=== PATIENT | female | born 1935 | race Caucasian/White ===

== ENCOUNTER 2019-10-26 10:40 | Inpatient (IN) | payer MEDICARE, OTHER ==
[~2019-10-26] VITALS: Ht 152.4 cm; Wt 69.6 kg
[~2019-10-26 10:40] MED LIST: ASPI-605 PO; DULO20CA PO; FURO-152 PO; GLIM1TAB18 PO; METF-440 PO; METO-357 PO; PRAV40TA3 PO; SPIR25TA6 PO; VALS320T2 PO
[2019-10-26 11:33] LABS: BASOPHILS # (AUTO) 0.1 K/uL (0.0-8.0); BASOPHILS % (AUTO) 0.9 % (0.0-2.0); EOSINOPHILS # (AUTO) 0.1 K/uL (0.0-0.7); EOSINOPHILS % (AUTO) 1.6 % (0.0-7.0); HEMATOCRIT 35.8 % (31.2-41.9); HEMOGLOBIN 11.9 g/dL (10.9-14.3); LYMPHOCYTES # (AUTO) 1.2 K/uL (20.0-40.0); LYMPHOCYTES % (AUTO) 17.7 % (20.5-51.5); MEAN CORPUSCULAR HEMOGLOBIN 27.7 uug (24.7-32.8); MEAN CORPUSCULAR HGB CONC 33 g/dL (32.3-35.6); MEAN CORPUSCULAR VOLUME 83.3 fL (75.5-95.3); MONOCYTES # (AUTO) 0.3 K/uL (2.0-10.0); MONOCYTES % (AUTO) 4.8 % (0.0-11.0); NEUTROPHILS # (AUTO) 5.2 K/uL (1.8-8.9); PLATELET COUNT (AUTO) 159 K/uL (179-408)
[2019-10-26 11:40] LABS: CARBON DIOXIDE 24 mmol/L (21-32); CHLORIDE 102 mmol/L (98-107); CREATININE 2.2 mg/dL (0.6-1.3); POTASSIUM 5.1 mmol/L (3.5-5.1); UREA NITROGEN, BLOOD 65 mg/dL (7-18)
[2019-10-26 11:42] LABS: GLUCOSE 46 mg/dL (74-106)
[2019-10-26 11:46] LABS: ALANINE AMINOTRANSFERASE 14 U/L (14-59); ALKALINE PHOSPHATASE 52 U/L (50-136); ASPARTATE AMINOTRANSFERASE 20 U/L (15-37); BILIRUBIN,DIRECT 0.1 mg/dL (0.0-0.2); BILIRUBIN,TOTAL 0.5 mg/dL (0.2-1.0); TOTAL PROTEIN, SERUM 7.6 g/dL (6.4-8.2)
[2019-10-26 12:40] LABS: *BILIRUBIN,URIN NEGATIVE (NEGATIVE); *BLOOD, URINE NEGATIVE (NEGATIVE); *CLARITY,URINE CLEAR (CLEAR); *COLOR,URINE YELLOW (YELLOW); *KETONES,URINE NEGATIVE (NEGATIVE); *UROBILINOGEN,URINE 0.2 E.U./dl (NORMAL); LEUKOCYTE ESTERASE ,URINE NEGATIVE (NEGATIVE); NITRITE, URINE NEGATIVE (NEGATIVE); UGLUCOSE NEGATIVE (NEGATIVE)
[2019-10-26] MEDS ORDERED: ONDANSETRON 4 MG/2 ML VIAL ONE (12:43)
[2019-10-26] MEDS ORDERED: ONDANSETRON 4 MG/2 ML VIAL IV ONE (12:45)
[2019-10-26] MEDS ORDERED: calcium PO (13:44)
[2019-10-26] MEDS ORDERED: GLIP10TA11 PO (13:44)
[2019-10-26] MEDS ORDERED: IRBE300T19 PO (13:44)
[2019-10-26] MEDS ORDERED: NAPR-1009 PO (13:44)
[2019-10-26] MEDS ORDERED: METF-494 PO (13:44)
[2019-10-26] MEDS ORDERED: LEVO88TA5 PO (13:44)
[2019-10-26] MEDS ORDERED: METF-440 PO (13:44)
[2019-10-26] MEDS ORDERED: DICL100G16 TP (15:37)
[2019-10-26] MEDS ORDERED: CARV3.12 PO (15:37)
[2019-10-26] MEDS ORDERED: NITR0.4T48 SL (15:37)
[2019-10-26] MEDS ORDERED: OLOP2.5D OP (15:37)
[2019-10-26 15:47] VITALS: BP 143/56
[2019-10-26] MEDS: BLOOD SUGAR DIAGNOSTIC 1 EACH STRIP VI SCH ×2 (16:20→20:00)
[2019-10-26] MEDS ORDERED: IV D5 1/2 NS 1000 ML 1,000 ML IV PRN (16:38)
[2019-10-26] MEDS ORDERED: HYDROCODONE/APAP 5-325MG TABLET PO PRN (16:45)
[2019-10-26] MEDS ORDERED: MAGNESIUM HYDROXIDE 30 ML LIQUID UDC PO PRN (16:45)
[2019-10-26] MEDS ORDERED: ZOLPIDEM 5 MG TABLET PO PRN (16:45)
[2019-10-26] MEDS ORDERED: Z GUARD REMEDY PASTE 57 GM TUBE TOP PRN (16:45)
[2019-10-26] MEDS ORDERED: ACETAMINOPHEN 325 MG TABLET PO PRN (16:45)
[2019-10-26] MEDS ORDERED: NITROGLYCERIN 0.4 MG/TAB BOTTLE SL SCH (16:45)
[2019-10-26] MEDS ORDERED: ONDANSETRON 4 MG/2 ML VIAL IV PRN (16:45)
[2019-10-26] MEDS ORDERED: NAPROXEN 500 MG TABLET PO PRN (16:45)
[2019-10-26] MEDS ORDERED: NITROGLYCERIN 0.4 MG/TAB BOTTLE SL PRN (17:15)
[2019-10-26] MEDS ORDERED: OLOPATADINE 0.1% OPHT DROP 5 ML BOTTLE EACHEYE PRN (17:15)
[2019-10-26 20:00] VITALS: BP 113/34
[2019-10-26] MEDS ORDERED: CARVEDILOL 3.125 MG TABLET PO SCH (21:00)
[2019-10-27] VITALS: BP 116/47
[2019-10-27] MEDS: BLOOD SUGAR DIAGNOSTIC 1 EACH STRIP VI SCH ×6 (00:08→20:00)
[2019-10-27 04:09] VITALS: BP 145/55
[2019-10-27 04:10] VITALS: BP 146/84
[2019-10-27] MEDS: LEVOTHYROXINE SODIUM 88 MCG TABLET PO SCH (05:42)
[2019-10-27 06:18] LABS: BASOPHILS % (AUTO) 0.8 % (0.0-2.0); EOSINOPHILS # (AUTO) 0.3 K/uL (0.0-0.7); EOSINOPHILS % (AUTO) 6.5 % (0.0-7.0); HEMATOCRIT 33.3 % (31.2-41.9); HEMOGLOBIN 10.8 g/dL (10.9-14.3); LYMPHOCYTES # (AUTO) 1.4 K/uL (20.0-40.0); LYMPHOCYTES % (AUTO) 33.1 % (20.5-51.5); MEAN CORPUSCULAR HEMOGLOBIN 27.1 uug (24.7-32.8); MEAN CORPUSCULAR HGB CONC 32 g/dL (32.3-35.6); MEAN CORPUSCULAR VOLUME 83.9 fL (75.5-95.3); MONOCYTES # (AUTO) 0.5 K/uL (2.0-10.0); NEUTROPHILS % (AUTO) 48.6 % (38.5-71.5); PLATELET COUNT (AUTO) 140 K/uL (179-408); RED BLOOD CELL COUNT(AUTO) 3.97 MIL/uL (3.63-4.92); WHITE BLOOD COUNT (AUTO) 4.2 K/uL (3.8-11.8)
[2019-10-27 06:44] LABS: THYROID STIMULATING HORMONE 13.543 mIU/mL (0.358-3.740)
[2019-10-27 06:46] LABS: CARBON DIOXIDE 28 mmol/L (21-32); CHLORIDE 104 mmol/L (98-107); CREATININE 1.6 mg/dL (0.6-1.3); GLUCOSE 193 mg/dL (74-106); MAGNESIUM 1.9 mg/dL (1.8-2.4); PHOSPHOROUS 3.5 mg/dL (2.5-4.9); POTASSIUM 4.6 mmol/L (3.5-5.1); UREA NITROGEN, BLOOD 51 mg/dL (7-18)
[2019-10-27 07:26] LABS: CHOLESTEROL 133 mg/dL (<200); TRIGLYCERIDES 122 MG/DL (30-150)
[2019-10-27 07:27] LABS: HDL CHOLESTEROL 43 mg/dL (40-60)
[2019-10-27] MEDS: ASPIRIN EC 81 MG TABLET.DR PO SCH (08:59)
[2019-10-27] MEDS: CARVEDILOL 3.125 MG TABLET PO SCH ×2 (09:00→16:58)
[2019-10-27] MEDS ORDERED: FUROSEMIDE 20 MG TABLET PO SCH (09:00)
[2019-10-27] MEDS ORDERED: DULOXETINE 20 MG CAPSULE.DR PO SCH (09:00)
[2019-10-27] MEDS ORDERED: CALCIUM PO SCH (09:00)
[2019-10-27] MEDS ORDERED: METOPROLOL SUCCINATE XL 50 MG TAB.SR.24H PO SCH (09:00)
[2019-10-27] MEDS ORDERED: SPIRONOLACTONE 25 MG TABLET PO SCH (09:00)
[2019-10-27] MEDS ORDERED: VALSARTAN 160 MG TABLET PO SCH (09:00)
[2019-10-27] MEDS ORDERED: IV D5 1/2 NS 1000 ML 1,000 ML IV PRN (09:22)
[2019-10-27 11:00] VITALS: BP 127/46
[2019-10-27 15:18] VITALS: BP 107/49
[2019-10-27 20:00] VITALS: BP 97/32
[2019-10-27] MEDS ORDERED: ATORVASTATIN 10 MG TABLET PO SCH (21:00)
[2019-10-28] MEDS: BLOOD SUGAR DIAGNOSTIC 1 EACH STRIP VI SCH ×4 (04:54→11:37)
[2019-10-28] MEDS: LEVOTHYROXINE SODIUM 88 MCG TABLET PO SCH (04:54)
[2019-10-28 07:42] LABS: EOSINOPHILS # (AUTO) 0.3 K/uL (0.0-0.7); EOSINOPHILS % (AUTO) 7.2 % (0.0-7.0); HEMATOCRIT 35.8 % (31.2-41.9); HEMOGLOBIN 11.7 g/dL (10.9-14.3); LYMPHOCYTES # (AUTO) 1.3 K/uL (20.0-40.0); LYMPHOCYTES % (AUTO) 26.3 % (20.5-51.5); MEAN CORPUSCULAR HEMOGLOBIN 27.4 uug (24.7-32.8); MEAN CORPUSCULAR HGB CONC 33 g/dL (32.3-35.6); MONOCYTES # (AUTO) 0.5 K/uL (2.0-10.0); MONOCYTES % (AUTO) 10.8 % (0.0-11.0); NEUTROPHILS # (AUTO) 2.6 K/uL (1.8-8.9); NEUTROPHILS % (AUTO) 54.7 % (38.5-71.5); PLATELET COUNT (AUTO) 141 K/uL (179-408); RED BLOOD CELL COUNT(AUTO) 4.26 MIL/uL (3.63-4.92); WHITE BLOOD COUNT (AUTO) 4.8 K/uL (3.8-11.8)
[2019-10-28 07:54] LABS: CREATININE 1.2 mg/dL (0.6-1.3); MAGNESIUM 1.6 mg/dL (1.8-2.4); PHOSPHOROUS 2.9 mg/dL (2.5-4.9); POTASSIUM 4.4 mmol/L (3.5-5.1)
[2019-10-28] MEDS: ASPIRIN EC 81 MG TABLET.DR PO SCH (08:45)
[2019-10-28] MEDS: CARVEDILOL 3.125 MG TABLET PO SCH (08:46)
[2019-10-28] MEDS ORDERED: Medication Not On Formulary EA (Valsartan (Diovan) 320 MG) PO SCH (09:00)
[2019-10-28] MEDS ORDERED: VALSARTAN 160 MG TABLET PO SCH (09:00)
[2019-10-28 11:30] VITALS: BP 137/34
[2019-10-28] MEDS: MAGNESIUM SULFATE/D5W 100 ML IV SCH ×2 (11:31→12:57)
== END 2019-10-28 13:28 | disposition home or self-care (01) | DRG 637 ==
LOC: ER 10:40 → TELE3 14:33 → MEDSURG3 10-27 11:15
PROVIDERS: ADMIT Student in an Organized Health Care Education/Training Program; ATTEND Student in an Organized Health Care Education/Training Program
DX: E11.649 Type 2 diabetes mellitus with hypoglycemia without coma (principal); G93.41 Metabolic encephalopathy; E86.0 Dehydration; T38.3X5A Adverse effect of insulin and oral hypoglycemic [antidiabetic] drugs, initial encounter; Z79.84 Long term (current) use of oral hypoglycemic drugs; Y92.019 Unspecified place in single-family (private) house as the place of occurrence of the external cause; D69.6 Thrombocytopenia, unspecified; N17.0 Acute kidney failure with tubular necrosis; M11.20 Other chondrocalcinosis, unspecified site; E78.5 Hyperlipidemia, unspecified; Z86.73 Personal history of transient ischemic attack (TIA), and cerebral infarction without residual deficits; Z79.899 Other long term (current) drug therapy; Z79.890 Hormone replacement therapy; I70.0 Atherosclerosis of aorta; I67.2 Cerebral atherosclerosis; E78.00 Pure hypercholesterolemia, unspecified
CPT/HCPCS: 36415; 70030-TC; 70450; 71045; 83735; 84100; 84443; 85025; 85730; 93005; A4663; G0378; J2405; J3475; J3490

== ENCOUNTER 2021-08-10 17:21 | Emergency (ER) | payer MEDICARE, OTHER ==
[~2021-08-10] VITALS: Ht 152.4 cm; Wt 68.0 kg
[~2021-08-10 17:21] MED LIST changes: +CARV3.12 PO; +DICL100G16 TP; -GLIM1TAB18 PO; +IRBE300T19 PO; +LEVO88TA5 PO; -METF-440 PO; +NAPR-1009 PO; +NITR0.4T48 SL; +OLOP2.5D12 OP; +calcium PO
--- NOTE | 2021-08-10 17:30 | NUR ---
Pt was triaged and placed back in ER waiting room as there are no ER beds available at this time. Family is with pt.
--- NOTE | 2021-08-10 18:45 | NUR ---
Per ER admitting the patient left with a family member.
== END 2021-08-10 18:47 | disposition left against medical advice (07) ==
LOC: ER 17:25
DX: Z53.21 Procedure and treatment not carried out due to patient leaving prior to being seen by health care provider (principal)

== ENCOUNTER 2022-03-01 19:03 | Emergency (ER) | payer MEDICARE, OTHER ==
[~2022-03-01] VITALS: Ht 162.6 cm; Wt 72.6 kg
--- NOTE | 2022-03-01 19:12 | NUR ---
PATIENT WAS TRIAGED IN THE WAITING ROOM DUE TO NO BEDS AVAILABLE IN THE ER.
--- NOTE | 2022-03-01 21:15 | NUR ---
Patient discharged to home in stable condition. Written and verbal after care instructions given. Patient verbalizes understanding of instructions. Stressed follow up or return to ER for worsening s/s. pt ambulated with steady gait with cane. no chest pain, no SOB. AOx4
[2022-03-01 21:17] VITALS: BP 112/60
== END 2022-03-01 21:18 | disposition home or self-care (01) ==
LOC: ER 19:20
DX: U07.1 COVID-19 (principal); E11.9 Type 2 diabetes mellitus without complications; E78.00 Pure hypercholesterolemia, unspecified; M10.9 Gout, unspecified; Z79.899 Other long term (current) drug therapy
CPT/HCPCS: A4663

== ENCOUNTER 2023-01-19 13:57 | Emergency (ER) | payer MEDICARE, OTHER ==
[~2023-01-19] VITALS: Ht 165.1 cm; Wt 72.6 kg
--- NOTE | 2023-01-19 14:28 | NUR ---
[email or web address],medical screening exam in progress
[2023-01-19] MEDS ORDERED: ACETAMINOPHEN ES 500 MG TABLET ONE (14:39)
[2023-01-19] MEDS ORDERED: ACETAMINOPHEN ES 500 MG TABLET PO ONE (14:45)
--- NOTE | 2023-01-19 15:36 | NUR ---
Patient discharged to home by Dr Fischer in stable condition with slow steady gait. Written and verbal after care instructions given to patient's son. Patient's son verbalized understanding and compliance of instructions. Stressed follow up with primary doctor and minute clerk or return to ER for worsening s/s.
== END 2023-01-19 15:39 | disposition home or self-care (01) ==
LOC: ER 13:59
DX: I10 Essential (primary) hypertension (principal); T46.1X5A Adverse effect of calcium-channel blockers, initial encounter; E11.9 Type 2 diabetes mellitus without complications; E78.5 Hyperlipidemia, unspecified; Z79.899 Other long term (current) drug therapy; Z79.82 Long term (current) use of aspirin; Y92.89 Other specified places as the place of occurrence of the external cause
CPT/HCPCS: 93005; A4663; A9150

== ENCOUNTER 2025-02-15 11:30 | Inpatient (IN) | payer MEDICARE, OTHER ==
[~2025-02-15] VITALS: Ht 190.5 cm; Wt 62.6 kg
[~2025-02-15 11:30] MED LIST changes: +ONDA4TAB11 PO
[2025-02-15 13:00] VITALS: BP 152/65; TEMP 98.2
[2025-02-15 13:13] VITALS: BP 152/65; TEMP 98.2
[2025-02-15 15:22] VITALS: BP 113/38; TEMP 98.6; O2SAT 98
[2025-02-15] MEDS ORDERED: ACET325T53 PO (16:51)
[2025-02-15] MEDS ORDERED: APIX5TAB PO (17:40)
[2025-02-15] MEDS ORDERED: ATOR40TA PO (17:43)
[2025-02-15] MEDS ORDERED: HYDR-894 PO (17:44)
[2025-02-15] MEDS ORDERED: IPRA0.2S48 NEB (17:45)
[2025-02-15] MEDS ORDERED: LOSA25TA27 PO (17:46)
[2025-02-15] MEDS ORDERED: LEVO125T8 PO (17:46)
[2025-02-15] MEDS ORDERED: MAGN400O6 PO (17:47)
[2025-02-15] MEDS ORDERED: METO25TA6 PO (17:48)
[2025-02-15] MEDS ORDERED: NITR1OIN2 TP (17:52)
[2025-02-15] MEDS ORDERED: PANT40TA49 PO (17:53)
[2025-02-15] MEDS ORDERED: TICA90TA PO (17:53)
[2025-02-15] MEDS ORDERED: ALLO100T PO (17:54)
[2025-02-15] MEDS ORDERED: DIME118C3 TP (17:54)
[2025-02-15] MEDS ORDERED: ALEN70TA80 PO (17:54)
[2025-02-15] MEDS ORDERED: INSU100V28 SQ (17:56)
[2025-02-15] MEDS ORDERED: ZINC113P3 TP (17:57)
[2025-02-15] MEDS ORDERED: BISACODYL 5 MG TABLET.DR PO PRN (18:30)
[2025-02-15] MEDS: BISACODYL 5 MG TABLET.DR PO PRN (18:57)
[2025-02-15] MEDS ORDERED: diphenhydrAMINE 25 MG CAP PO PRN (20:00)
[2025-02-15 20:07] VITALS: BP 161/42; TEMP 98.4; O2SAT 99
[2025-02-15] MEDS ORDERED: MAGNESIUM HYDROXIDE 30 ML LIQUID UDC PO PRN (21:45)
[2025-02-15] MEDS ORDERED: ACETAMINOPHEN 325 MG TABLET-SA PATIENTS-PAIN ONLY PO PRN (21:45)
[2025-02-16 00:08] LABS: *BILIRUBIN,URIN NEGATIVE (NEGATIVE); *BLOOD, URINE 3+ (NEGATIVE); *CLARITY,URINE SLIGHTLY CLOUDY (CLEAR); *COLOR,URINE YELLOW (YELLOW); *KETONES,URINE NEGATIVE (NEGATIVE); *PROTEIN,URINE 2+ (NEGATIVE); LEUKOCYTE ESTERASE ,URINE NEGATIVE (NEGATIVE); NITRITE, URINE NEGATIVE (NEGATIVE); PH,URINE 7.5 (5.0-8.0); UGLUCOSE NEGATIVE (NEGATIVE)
[2025-02-16 00:15] LABS: BACTERIA,URINE FEW /HPF (NONE SEEN); RBC,URINE 80-100 /HPF (0-3); SQUAMOUS EPITHELIAL CELL,UR FEW /HPF (NONE SEEN); WBC,URINE 0-3 /HPF (0-3)
[2025-02-16] MEDS: LEVOTHYROXINE SODIUM 125 MCG TABLET PO SCH (06:25)
[2025-02-16] MEDS: PANTOPRAZOLE SODIUM 40 MG TABLET.DR PO SCH (06:26)
[2025-02-16 06:30] VITALS: BP 137/37; TEMP 98.2; O2SAT 96
[2025-02-16 06:51] LABS: BASOPHILS # (AUTO) 0.1 K/UL (0.0-0.2); BASOPHILS % (AUTO) 1.1 % (0.0-2.0); EOSINOPHILS # (AUTO) 0.2 K/uL (0.0-0.7); EOSINOPHILS % (AUTO) 2.9 % (0.0-7.0); HEMATOCRIT 37.1 % (31.2-41.9); HEMOGLOBIN 11.9 g/dL (10.9-14.3); LYMPHOCYTES # (AUTO) 0.5 K/uL (0.8-4.8); LYMPHOCYTES % (AUTO) 8.1 % (20.5-51.5); MEAN CORPUSCULAR HEMOGLOBIN 24.4 uug (24.7-32.8); MEAN CORPUSCULAR HGB CONC 32 g/dL (32.3-35.6); MEAN CORPUSCULAR VOLUME 76.3 fL (75.5-95.3); MONOCYTES # (AUTO) 0.8 K/uL (0.1-1.30); MONOCYTES % (AUTO) 13.1 % (0.0-11.0); NEUTROPHILS # (AUTO) 4.8 K/uL (1.8-8.9); NEUTROPHILS % (AUTO) 74.8 % (38.5-71.5); PLATELET COUNT (AUTO) 201 K/uL (179-408); RED BLOOD CELL COUNT(AUTO) 4.86 MIL/uL (3.63-4.92); RED CELL DISTRIBUTION WIDTH 24.4 % (12.3-17.7); WHITE BLOOD COUNT (AUTO) 6.4 K/uL (3.8-11.8)
[2025-02-16 07:01] LABS: DIFFERENTIAL COMMENT 1
[2025-02-16 07:03] LABS: CALCIUM 9.6 mg/dL (8.5-10.1); CARBON DIOXIDE 29 mmol/L (21-32); CHLORIDE 102 mmol/L (98-107); CREATININE 1.3 mg/dL (0.6-1.3); GLUCOSE 190 mg/dL (74-106); MAGNESIUM 2.2 mg/dL (1.8-2.4); SODIUM SERUM 141 mmol/L (136-145); UREA NITROGEN, BLOOD 33 mg/dL (7-18)
[2025-02-16 08:00] VITALS: BP 156/50; TEMP 98.7; O2SAT 96
[2025-02-16] MEDS ORDERED: DEXTROSE 50% 50 ML DISP.SYRIN IV PRN (08:45)
[2025-02-16] MEDS ORDERED: FUROSEMIDE 20 MG TABLET PO SCH (09:00)
[2025-02-16] MEDS ORDERED: APIXABAN 5 MG TABLET PO SCH (09:00)
[2025-02-16] MEDS: METOPROLOL TARTRATE 25 MG TABLET PO SCH (09:00)
[2025-02-16] MEDS ORDERED: hydrALAZINE HCL 25 MG TABLET PO SCH (09:00)
[2025-02-16] MEDS ORDERED: METOPROLOL TARTRATE 25 MG TABLET PO SCH (09:00)
[2025-02-16] MEDS: ASPIRIN EC 81 MG TABLET.DR PO SCH (09:58)
[2025-02-16] MEDS: hydrALAZINE HCL 25 MG TABLET PO ONE (09:58)
[2025-02-16] MEDS: TICAGRELOR 90 MG TABLET PO SCH (09:59)
[2025-02-16] MEDS: ALLOPURINOL 100 MG TABLET PO SCH (09:59)
[2025-02-16] MEDS: FUROSEMIDE 20 MG TABLET PO SCH (10:51)
[2025-02-16] MEDS: APIXABAN 5 MG TABLET PO SCH (11:04)
[2025-02-16] MEDS: BLOOD SUGAR DIAGNOSTIC 1 EACH STRIP VI SCH (11:30)
[2025-02-16] MEDS: GLUCERNA SHAKE 237 ML CAN PO SCH (12:00)
[2025-02-16] MEDS: INSULIN REGULAR, HUMAN 1000 UNIT/10 ML VIAL SQ PRN (12:08)
[2025-02-16] MEDS: hydrALAZINE HCL 25 MG TABLET PO SCH (14:04)
[2025-02-16 15:09] VITALS: BP 142/34; TEMP 98.2; O2SAT 100
[2025-02-16] MEDS ORDERED: LOSARTAN POTASSIUM 25 MG TABLET PO SCH (21:00)
[2025-02-16] MEDS: LOSARTAN POTASSIUM 25 MG TABLET PO SCH (21:25)
[2025-02-16] MEDS: ATORVASTATIN 40 MG TABLET PO SCH (21:27)
[2025-02-16 22:45] VITALS: BP 134/38; TEMP 98.4; O2SAT 95
[2025-02-17 06:57] VITALS: BP 131/36; TEMP 98.4; O2SAT 96
[2025-02-17 08:00] VITALS: BP 120/49; TEMP 97.8; O2SAT 100
[2025-02-17] MEDS: TRAMADOL HCL 50 MG TABLET PO PRN (10:47)
[2025-02-17] MEDS: ACETAMINOPHEN 325 MG TABLET PO PRN (12:04)
[2025-02-17 16:02] VITALS: BP 112/61; TEMP 98.2; O2SAT 97
[2025-02-17] MEDS ORDERED: BISACODYL 10 MG SUPP.RECT RC PRN (20:00)
[2025-02-17 20:26] VITALS: BP 123/41; TEMP 98.3; O2SAT 19
[2025-02-18 07:00] VITALS: BP 137/36; TEMP 97.8; O2SAT 95
[2025-02-18 08:27] VITALS: BP 128/37; TEMP 98.1; O2SAT 96
[2025-02-18] MEDS: predniSONE 20 MG TABLET PO SCH (09:03)
[2025-02-18 16:09] VITALS: BP 128/37; TEMP 97.7; O2SAT 97
[2025-02-18 21:29] VITALS: BP 124/39; TEMP 98.1; O2SAT 94
[2025-02-19 06:54] VITALS: BP 152/42; TEMP 97.7; O2SAT 97
[2025-02-19 07:39] VITALS: BP 139/48; TEMP 97.6; O2SAT 100
[2025-02-19] MEDS: predniSONE 20 MG TABLET PO SCH (09:20)
[2025-02-19 16:00] VITALS: BP 132/50; TEMP 97.6; O2SAT 98
[2025-02-19 19:52] VITALS: BP 133/62; TEMP 97.9; O2SAT 95
[2025-02-19 21:05] VITALS: BP 120/43
[2025-02-19] MEDS: INSULIN GLARGINE,HUM 300 UNITS/3 ML CARTRIDGE SQ SCH (21:21)
[2025-02-20 06:42] VITALS: BP 140/61; TEMP 97.4; O2SAT 97
[2025-02-20 08:10] VITALS: BP 125/45; TEMP 97.6; O2SAT 99
[2025-02-20 16:47] VITALS: BP 114/93; TEMP 97.7; O2SAT 97
[2025-02-20] MEDS: INSULIN REGULAR, HUMAN 1000 UNIT/10 ML VIAL SQ ONE (18:30)
[2025-02-20 20:16] VITALS: BP 118/40; TEMP 97.8; O2SAT 96
[2025-02-21] MEDS: ALENDRONATE SODIUM 70 MG TABLET PO SCH (06:50)
[2025-02-21 06:51] VITALS: BP 170/53; TEMP 97.5; O2SAT 98
[2025-02-21 07:15] VITALS: BP 162/48
[2025-02-21 08:00] VITALS: BP 162/48; TEMP 97.6; O2SAT 98
[2025-02-21 16:02] VITALS: BP 113/36; TEMP 97.9; O2SAT 98
[2025-02-21 21:05] VITALS: BP 121/38; TEMP 97.8; O2SAT 95
[2025-02-21] MEDS ORDERED: TEMAZEPAM 15 MG CAPSULE PO PRN (23:30)
[2025-02-22 06:42] VITALS: BP 153/47; TEMP 97.8; O2SAT 97
[2025-02-22 08:31] VITALS: BP 154/47; TEMP 97.6; O2SAT 100
[2025-02-22 16:47] VITALS: BP 120/36; TEMP 98.2; O2SAT 98
[2025-02-22 21:47] VITALS: BP 137/44; TEMP 97.9; O2SAT 96
[2025-02-23 06:32] VITALS: BP 142/50; TEMP 97.8; O2SAT 98
[2025-02-23 07:14] LABS: BASOPHILS # (AUTO) 0.1 K/UL (0.0-0.2); BASOPHILS % (AUTO) 0.8 % (0.0-2.0); EOSINOPHILS # (AUTO) 0.1 K/uL (0.0-0.7); EOSINOPHILS % (AUTO) 1.2 % (0.0-7.0); HEMOGLOBIN 11.6 g/dL (10.9-14.3); LYMPHOCYTES # (AUTO) 1.6 K/uL (0.8-4.8); LYMPHOCYTES % (AUTO) 14.9 % (20.5-51.5); MEAN CORPUSCULAR HEMOGLOBIN 24.7 uug (24.7-32.8); MEAN CORPUSCULAR HGB CONC 32 g/dL (32.3-35.6); MEAN CORPUSCULAR VOLUME 76.5 fL (75.5-95.3); MONOCYTES # (AUTO) 0.8 K/uL (0.1-1.30); NEUTROPHILS # (AUTO) 7.8 K/uL (1.8-8.9); NEUTROPHILS % (AUTO) 75.1 % (38.5-71.5); PLATELET COUNT (AUTO) 224 K/uL (179-408); WHITE BLOOD COUNT (AUTO) 10.4 K/uL (3.8-11.8)
[2025-02-23 07:26] LABS: CALCIUM 9.2 mg/dL (8.5-10.1); CARBON DIOXIDE 31 mmol/L (21-32); CHLORIDE 101 mmol/L (98-107); CREATININE 1.3 mg/dL (0.6-1.3); DIFFERENTIAL COMMENT 1; GLUCOSE 92 mg/dL (74-106); MAGNESIUM 2.2 mg/dL (1.8-2.4); PHOSPHOROUS 3.2 mg/dL (2.5-4.9); POTASSIUM 4.1 mmol/L (3.5-5.1); SODIUM SERUM 140 mmol/L (136-145); UREA NITROGEN, BLOOD 58 mg/dL (7-18)
[2025-02-23 08:32] VITALS: BP 134/46; TEMP 98.5; O2SAT 99
[2025-02-23 08:59] VITALS: BP 134/46
== END 2025-02-23 10:45 | disposition home health service (06) | DRG 280 ==
PROVIDERS: ADMIT Physical Medicine & Rehabilitation Pain Medicine; ATTEND Physical Medicine & Rehabilitation Pain Medicine
DX: I13.0 Hypertensive heart and chronic kidney disease with heart failure and stage 1 through stage 4 chronic kidney disease, or unspecified chronic kidney disease (principal); I50.23 Acute on chronic systolic (congestive) heart failure; I21.A1 Myocardial infarction type 2; N17.9 Acute kidney failure, unspecified; E03.9 Hypothyroidism, unspecified; E11.22 Type 2 diabetes mellitus with diabetic chronic kidney disease; I25.10 Atherosclerotic heart disease of native coronary artery without angina pectoris; I48.91 Unspecified atrial fibrillation; N18.9 Chronic kidney disease, unspecified; Z95.5 Presence of coronary angioplasty implant and graft
CPT/HCPCS: 36415; 83735; 84100; 84550; 85025; 93307; 97535-GO-CO; A4663; J1815; J7512; J8499